=== PATIENT | male | born 2005 | race African-American/Black ===

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

== ENCOUNTER 2025-04-10 02:34 | Emergency (ER) | payer SELFPAY ==
[2025-04-10] VITALS (21 sets, daily range): BP systolic 73–147; BP diastolic 47–73; PULSE 70–93; RESP 15–22; TEMP 36.5; O2SAT 97–100
--- NOTE | 2025-04-10 02:37 | ED.GENADUL_ITS ---
Discharge Plan Disposition Patient Disposition: Home Condition: Good Discharge Details Clinical Impression: Acute LUQ pain Primary Care Provider: Lauren Cabrera ED Provider: Nino Pierre and New Rx's Prescriptions: Continued sertraline 100 mg tablet 100 mg PO DAILY lamotrigine 25 mg tablet 50 mg PO DAILY melatonin 10 mg tablet 10 mg PO HS PRN Discharge Instructions Additional Instructions: You were seen for an episode of left upper quadrant abdominal pain. Your exam, vital signs, EKG, chest x-ray and laboratory studies are all reassuring. Follow-up with primary care as needed. Return to ED for any new or worsening pain, persistent vomiting, fever, shortness of breath, other concerns. Referrals: Lauren Cabrera [Primary Care Provider, Medicine] [facility] General Mode of arrival: ambulatory . Date/Time Provider Initiated Documentation: 04/10/25 02:37 . Limitations to Documentation: no limitations . Information obtained by: patient and RN notes reviewed . HPI Narrative: Patient presents to ED with left upper quadrant pain radiating into his chest which woke him up about 30 to 45 minutes ago. Pain described as sharp and pleuritic. Did not necessarily feel short of breath but could not take a deep breath. No radiation of pain to the back. No nausea or vomiting. Denies any urinary symptoms. Denies any fever or cough. No previous abdominal surgery. No cocaine or methamphetamine use. Pain has resolved at this point. Has never had it previously. Related Data Home Medications ?Medication ?Instructions ?Recorded ?Confirmed lamotrigine 25 mg tablet 50 mg PO DAILY 03/25/2203/27 melatonin 10 mg tablet 10 mg PO HS PRN 03/25/22 sertraline 100 mg tablet 100 mg PO DAILY 03/25/22 Allergies Allergy/AdvReac Type Severity Reaction Status Date / Time No Known Allergies Allergy Unverified 04/10/25 02:37 General ALLY: 4 Exam Narrative Exam Narrative: Const: WDWN male in NAD. VS per triage. HEENT: NC/AT. Normal facial exam. Neck: Supple. Trachea midline. Lungs: Normal respiratory effort. Lungs are clear. Cor: RRR without murmur. Good radial pulses. GI: Soft/ND/NT. Neuro: A+O x 3. Normal speech, mentation, gait. Cranial nerves II - XII grossly intact. No gross motor or sensory deficit. Ext: No C/C/E. Medical Decision Making Patient presenting to ED with onset of sharp pleuritic left upper quadrant and left chest pain. Pain has since resolved. He is mildly hypertensive but vital signs otherwise normal and no tachycardia. Saturations are 100% on room air. Breath sounds present bilaterally. No abdominal tenderness. No use of cocaine or methamphetamine, no real concern for cardiac issue but will obtain EKG. Will need chest x-ray though with breath sounds present and saturations normal and pain resolved doubt pneumothorax. He is low risk for PE and subsequently PERCs out. Will check abdominal labs and observe for any recurrent pain while here. EKG with early repolarization but otherwise normal. Chest x-ray per my read with no acute cardiopulmonary process and specifically no pneumothorax. Laboratory studies unremarkable. White count minimally elevated to 11.9. Very mild anemia present. Chemistries and abdominal labs are normal. Urinalysis is normal. Patient without recurrent pain. Vital signs have remained normal. Will discharge home to follow-up with PCP as needed, return precautions provided. Imaging Data Radiologic Study: Attestation: I personally reviewed and interpreted this imaging study as follows: Imaging: X-Ray My impression: see [facility] Lab Data Lab results reviewed: Yes I reviewed the patient's lab results. Lab results narrative: see [facility] ECG Data Attestation: I personally reviewed and interpreted this ECG (s) as follows: Prior ECG tracings: not available for review Interpretation: see MDM/EKG [facility] All Active Problems (Updated 04/10/25 @ 04:09 by Nino Pierre MD) Acute LUQ pain (Acute) Ganglion cyst of dorsum of right wrist (Acute) Social History Smoking/Tobacco Use Status: Never Smoking risk assessment performed?: Yes Alcohol Intake: never Drug use: Daily Substance use type: marijuana Housing: house Do you feel safe at home: Yes Do you feel safe in your relationship?: Yes
--- NOTE | 2025-04-10 02:45 | DI.RAD_ITS ---
Exam(s) XR CHEST 2V PA LATERAL EXAM: XR CHEST 2V PA LATERAL CLINICAL HISTORY: pleuritic pain TECHNIQUE: 2D digital imaging was performed of the chest. Two images were obtained. PA and lateral views were obtained. COMPARISON: No exams were available for comparison FINDINGS: MEDIASTINUM: Normal. HEART: Normal. PULMONARY VASCULATURE: Normal. LUNGS: Clear. PLEURAL SPACE: No pleural effusion or pneumothorax. BONE:Within normal limits for the patient's age. OTHER FINDINGS:Normal. IMPRESSION: 1. No acute pulmonary findings. 2. The preliminary [facility] report was reviewed. DATA REPOSITORY: RADIATION DOSE DELIVERED:
--- NOTE | 2025-04-10 02:45 | RT.EKG_ITS ---
APPROVED REPORT Exam: Resting ECG Reason for Exam: Patient Location: E HR:75 bpm ECG Measurements Heart Rate 75 AXIS MI 173 P 80 QRSd 90 QRS 64 QT 365 T 58 QTc 408 Conclusion Sinus rhythm...normal P axis, V-rate 60- 99 ST elev, probable normal early repol pattern...ST elevation, age<55 Normal [place]/Interval I have reviewed and interpreted ECG and agree with software generated interpretation.
[2025-04-10 03:19] LABS: Abs Immature Grans 0.05 10^3/uL (0.0-0.06); HCT 39.2 % (40.0-50.0); HGB 13.3 g/dL (13.5-17.5); Immature Grans % 0.4 %; MCH 29.8 pg (27.0-33.0); MCHC 33.9 % (32.0-36.0); MCV 88 fL (80-95); MPV 11.6 fL (8.0-11.0); Platelet Count 147 10^3/uL (130-400); RBC 4.47 10^6/uL (4.36-5.78); RDW 13.2 % (11.8-14.1); RDW-SD 42.4 fL; WBC 11.87 10^3/uL (4.4-10.8)
[2025-04-10 03:32] LABS: ALT 37 U/L (16-63); AST 25 U/L (15-37); Albumin 4.0 g/dL (3.4-5.0); Alkaline Phosphatase 60 U/L (46-116); Anion Gap 7.3 mmol/L (3-11); BUN 17 mg/dL (7-18); Bilirubin, Total 0.4 mg/dL (0.2-1.0); CO2 26.7 mmol/L (21.0-32.0); Calcium 9.0 mg/dL (8.5-10.1); Chloride 106 mmol/L (98-107); Estimated GFR 109.81 (mL/min/1.73m2); Glucose 99 mg/dL (74-106); Lipase 26 U/L (<78); Potassium 3.7 mmol/L (3.5-5.1); Sodium 140 mmol/L (136-145); Total Protein 6.6 g/dL (6.4-8.2)
[2025-04-10 03:56] LABS: Glucose Negative (Negative)
--- NOTE | 2025-04-10 04:13 | DI.VRAD_ITS ---
PROCEDURE INFORMATION: Exam: XR Chest Exam date and time: 04/10/2025 3:23 AM Age: 20 years old Clinical indication: Other: Pleuritic pain TECHNIQUE: Imaging protocol: Radiologic exam of the chest. Views: 2 views. COMPARISON: No relevant prior studies available. FINDINGS: Lungs: No focal consolidation seen. Pleural spaces: No large pleural effusion seen. Heart/Mediastinum: No cardiomegaly. Bones/joints: No acute abnormality. IMPRESSION: No acute findings to explain reported symptoms. Dictated and Authenticated by: Thalia Noble MD. Orderin Ignacio Oneill MD
== END 2025-04-10 04:21 | disposition home or self-care (01) ==
LOC: ER 04:34
PROVIDERS: Emergency Provider Emergency Medicine; PCP Nurse Practitioner
DX: R10.13 Epigastric pain (principal)
CPT/HCPCS: 80053; 83690; 93005; 99284; 71046; 81003; 85025; 93010

== ENCOUNTER 2025-05-28 19:05 | Emergency (ER) | payer MEDICAID, SELFPAY ==
[2025-05-28 19:15] VITALS: BP 132/78; PULSE 92; RESP 16; TEMP 36.8; O2SAT 98
--- NOTE | 2025-05-28 19:37 | ED.GENADUL_ITS ---
Discharge Plan Disposition Patient Disposition: Home Condition: Stable Discharge Details Clinical Impression: Bipolar 1 disorder Primary Care Provider: Lauren Cabrera ED Provider: Farshad Murphy Home Meds and New Rx's Prescriptions: No Action sertraline 100 mg tablet 100 mg PO DAILY Discharge Instructions Instructions: Bipolar disorder Additional Instructions: You were seen in the emergency department for feeling burnt out,, he denied suicidal ideation or homicidal ideation, you refused to wait for [facility] to evaluate you, you have a safe place to go, I am unable to write you 2 weeks of from work for this complaint without seeing a mental health professional, you do have an upcoming therapy initiation visit. Please follow through with this plan, please continue your sertraline. Please return to the ER for any emergent concerns. Referrals: Lauren Cabrera [Primary Care Provider, Medicine] Discharge Data Discharge Date/Time-TO BE ENTERED AT DEPARTURE: 05/28/25 20:48 HPI General Date/Time Provider Initiated Documentation: 05/28/25 19:23 . 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 Severity is described as moderate. Palliating factors include nothing specific attempted. Provoking factors include nothing specific. Patient not anticoagulated. Related Data Home Medications ?Medication ?Instructions ?Recorded ?Confirmed sertraline 100 mg tablet 100 mg PO DAILY 03/25/2210/21 Allergies Allergy/AdvReac Type Severity Reaction Status Date / Time No Known Allergies Allergy Unverified 04/10/25 02:37 General Stated Complaint: PsychEval ALLY: 2 Review of Systems All systems reviewed & are unremarkable except as noted in HPI and below Exam Narrative Exam Narrative: GENERAL APPEARANCE: Well-nourished, non-toxic, awake and alert, atraumatic, no acute distress. SKIN: Warm, normal for ethnicity, dry, intact, without rashes/lesions/ulcerations. HEAD: Normocephalic, atraumatic, normal hair distribution for gender/age. EYES: Normal conjunctiva, no exudates on lids/lashes. ENT: Nares patent, no circumoral cyanosis, no facial swelling NECK: Supple, trachea midline, painless cervical ROM. LUNGS/CHEST: Non-labored respirations, normal A/P diameter, symmetrical expansion, no chest wall deformity HEART (CV/PV): No peripheral edema, no JVD. ABDOMEN: Soft, non-distended, no guarding. MSK: Normal ROM, no swelling/deformity to bilateral UEs or LEs, moving all extremities without weakness, no cyanosis, spine midline without tenderness, normal curvature. NEURO: Mental Status AAOx4 - alert to person, place, time, events No facial droop, no forehead involvement. Motor: No focal weakness - strength 5/5 in bilateral UEs and LEs, proximal and distal, symmetric. Sensory: sensation intact to light touch globally. Gait normal: patient ambulated without ataxia into ED room. PSYCH: dysthymic, cooperative, pleasant, appropriate speech, non-suicidal, non- homicidal, non-psychotic Course Vital Signs Vital signs: Vital Signs Temperature 36.8 C 05/28/25 19:15 Pulse 92 H 05/28/25 19:15 Respiratory Rate 16 05/28/25 19:15 Blood Pressure 132/78 05/28/25 19:15 Pulse Oximetry 98 05/28/25 19:15 Temperature 36.8 C 05/28/25 19:15 Temperature Source Oral 05/28/25 19:15 Pulse 92 H 05/28/25 19:15 Respiratory Rate 16 05/28/25 19:15 Blood Pressure 132/78 05/28/25 19:15 Blood Pressure Position Supine 05/28/25 19:15 Pulse Oximetry 98 05/28/25 19:15 Oxygen Delivery Method Room Air 05/28/25 19:15 Oxygen Flow Rate 0 05/28/25 19:15 Medical Decision Making This dictation utilizes [id number] dictation software and may contain unedited grammatical errors. 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 Severity is described as moderate. Palliating factors include nothing specific attempted. Provoking factors include nothing specific. Patients' medical history: bipolar 1. Family and social history: working as corretions officer, increased pressure at work. Pertinent exam findings / vital signs include no physical complaints- calm, appropriate speech, non-psychotic. Differential / pathologies of concern include bipolar 1, burnout, anxiety. Diagnostic studies of: -None. Interventions of: -Consult [facility]- they are in the field with PD, stated two hour wait. ED Course/Assessment/Plan: 20-year-old male presents with increased anxiety at work lately feeling stressed out, denies suicidal or homicidal ideation, would not be willing to wait the 2 hours to speak with [facility] and has upcoming therapy initiation visit, he did ask for 2 weeks off I stated I could not provide this for him unless he waited to speak to mental health, patient left at that point, low risk and has close supports, no safety plan needed. Findings not consistent with suicidal or homicidal ideation. Disposition of Bipolar 1 Disorder. Patient verbalized understanding of the plan and return to ED criteria and engaged in shared decision making. Medical Records Medical records reviewed: Yes I reviewed the patient's medical records. Quality:SDOH Health Related Social Needs: Health related social needs lonely/isolated Health related social needs details None PFSH All Active Problems (Updated 05/28/25 @ 20:25 by DARRIN Gordillo) Bipolar 1 disorder (Acute) Ganglion cyst of dorsum of right wrist (Acute) Social History Smoking/Tobacco Use Status: Never Smoking risk assessment performed?: Yes Alcohol Intake: never Drug use: Daily Substance use type: marijuana Housing: house Do you feel safe at home: Yes Do you feel safe in your relationship?: Yes
== END 2025-05-28 20:48 | disposition home or self-care (01) ==
PROVIDERS: Emergency Provider Physician Assistant; PCP Nurse Practitioner
DX: F31.9 Bipolar disorder, unspecified (principal); Z60.8 Other problems related to social environment
CPT/HCPCS: 99283; 99282

== ENCOUNTER 2025-06-07 06:30 | Emergency (ER) | payer MEDICAID, SELFPAY ==
[2025-06-07 06:36] VITALS: BP 118/89; PULSE 87; RESP 16; TEMP 36.9; O2SAT 100
--- NOTE | 2025-06-07 06:48 | ED.GENADUL_ITS ---
Discharge Plan Discharge Details Chief Complaint: PsychEval Clinical Impression: Depression with suicidal ideation Primary Care Provider: Lauren Cabrera ED Provider: Farshad Castelan Home Meds and New Rx's Prescriptions: No Action sertraline 100 mg tablet 100 mg PO DAILY HPI General Date/Time Provider Initiated Documentation: 06/07/25 06:35 . HPI Narrative: This is a 20-year-old -[place] male with a past medical history of bipolar currently on sertraline who presents today for evaluation of thoughts of self-harm patient states that for the last month he has felt somewhat more depressed than normal. He has not enjoyed things in life, he just wants to go back to bed when he wakes up in the morning, he has not been enjoying things that normally bring him happiness. Over the last week this is notably worsened, over the last few days he has been getting to have thoughts of self-harm, he states that he would not harm himself by cutting himself with a knife preferably on the risks he states he has been taking his medication as prescribed. He did miss 1 day of meds the other day, he does admit to smoking marijuana which he states does help with some of his symptoms. However he denies any alcohol or IV drug use or other drugs in general. No other complaints at this time. No other modifying factors. He has a distant history of taking excess pills years ago, but has never been admitted for mental health hospitalization. Related Data Home Medications ?Medication ?Instructions ?Recorded ?Confirmed sertraline 100 mg tablet 100 mg PO DAILY 03/25/2208/21 Allergies Allergy/AdvReac Type Severity Reaction Status Date / Time No Known Allergies Allergy Unverified 04/10/25 02:37 General Stated Complaint: PsychEval ALLY: 3 Exam Narrative Exam Narrative: 1.Const: Well-nourished, Well-developed, appearing stated age 2.Eyes: PERRL, no conjunctival injection, and symmetrical lids. 3.ENT: Atraumatic external nose and ears. Moist MM. Neck: Symmetric, trachea midline, No thyromegaly. 4.CVS: +S1/S2, Peripheral pulses 2+ and equal in all extremities. Brisk capillary refill in all extremities. 5.RESP: Unlabored respiratory effort. Clear to auscultation bilaterally. No wheezes rales or rhonchi 6.GI: Soft, Nontender/Nondistended, No hepatosplenomegaly. No guarding or rebound. 7.MSK: Normocephalic/Atraumatic, Extremities w/o deformity or ttp No cyanosis or clubbing, Normal movement of all extremities 8.Skin: Warm, Dry. No rashes or lesions. 9.Neuro: conditioning coach II-XII grossly intact. Sensation grossly intact, no focal neurologic deficits. 10.Psych: (AAO) x3. Appropriate mood and affect Course Vital Signs Vital signs: Vital Signs Temperature 36.9 C 06/07/25 06:36 Pulse 87 06/07/25 06:36 Respiratory Rate 16 06/07/25 06:36 Blood Pressure 118/89 06/07/25 06:36 Pulse Oximetry 100 06/07/25 06:36 Temperature 36.9 C 06/07/25 06:36 Temperature Source Oral 06/07/25 06:36 Pulse 87 06/07/25 06:36 Respiratory Rate 16 06/07/25 06:36 Blood Pressure 118/89 06/07/25 06:36 Blood Pressure Position Sitting 06/07/25 06:36 Pulse Oximetry 100 06/07/25 06:36 Oxygen Delivery Method Room Air 06/07/25 06:36 Oxygen Flow Rate 0 06/07/25 06:36 Pain Level 0 06/07/25 06:36 Medical Decision Making This is a 20-year-old -[place] male with a past medical history of bipolar currently on sertraline who presents today for evaluation of thoughts of self-harm patient states that for the last month he has felt somewhat more depressed than normal. He has not enjoyed things in life, he just wants to go back to bed when he wakes up in the morning, he has not been enjoying things that normally bring him happiness. Over the last week this is notably worsened, over the last few days he has been getting to have thoughts of self-harm, he states that he would not harm himself by cutting himself with a knife preferably on the risks he states he has been taking his medication as prescribed. He did miss 1 day of meds the other day, he does admit to smoking marijuana which he states does help with some of his symptoms. However he denies any alcohol or IV drug use or other drugs in general. No other complaints at this time. No other modifying factors. He has a distant history of taking excess pills years ago, but has never been admitted for mental health hospitalization. Exam demonstrates a well-appearing male, normal mood and affect. Patient is at Mild to moderate risk with his suicidal ideations. He is seeking help. Patient is hemodynamically stable and medically clear. Patient has been smart form. We will contact mental health for evaluation. Patient will be signed out to my colleague Dr. Main for follow-up on mental health assessment. Quality:SDOH Health Related Social Needs: Health related social needs lonely/isolated Health related social needs details None PFSH All Active Problems (Updated 06/07/25 @ 06:51 by Farshad Castelan DO) Depression with suicidal ideation (Acute) Bipolar 1 disorder (Acute) Ganglion cyst of dorsum of right wrist (Acute) Social History Smoking/Tobacco Use Status: Never Smoking risk assessment performed?: Yes Alcohol Intake: never Drug use: Daily Substance use type: marijuana Housing: house Do you feel safe at home: Yes Do you feel safe in your relationship?: Yes
--- NOTE | 2025-06-07 08:37 | ED.PROG1_ITS ---
Date of service: 06/07/25 Time of Service: 08:00 Psychiatric Border Handoff Update Brief Story: In brief, this is a 20-year-old male patient with a past medical history significant for bipolar 1, presenting for evaluation of depression, suicidal ideation with a plan to cut his wrists, no intent or attempt. At the time that I took over his care, he was medically cleared, and awaiting evaluation by [facility]. The patient had a discussion with the social work job titles, at this time is planning to follow-up with his PCP on Wednesday for medication changes, and meets criteria for safety plan and outpatient management at this time. He is unsure if he wants to proceed with inpatient hospitalization, and outpatient referral can be placed if he does change his mind. He completed a safety plan and has numerous outpatient supports and understands that he should return to care immediately if he begins to feel unsafe or cannot cannot complete the terms of the safety plan as outlined. At this time, the patient has had a full medical evaluation and is safe for discharge to home. They are hemodynamically stable, ambulatory, and tolerating PO. They are understanding of the follow-up plan and return precautions. They left our facility without incident. Giselle Main MD Status: voluntary Able to leave: yes Behavioral Concerns: None Potential Disposition: Outpatient care, safety plan Medical Concerns: None Discharge Plan Disposition Patient Disposition: Home Condition: Stable Discharge Details Clinical Impression: Depression with suicidal ideation Primary Care Provider: Lauren Cabrera ED Provider: Giselle Main Home Meds and New Rx's Prescriptions: No Action sertraline 100 mg tablet 100 mg PO DAILY Discharge Instructions Instructions: Suicide Prevention Additional Instructions: You were seen in the emergency department today for evaluation of suicidal thoughts and feelings in the setting of depression. In our department you had a full physical examination performed, and met with a member of our crisis team. At this time, you are completing a safety plan and will reach out to [facility] daily as recommended while awaiting your appointment with your primary care provider on Wednesday. As they discussed, you can consider voluntary psychiatric hospitalization for medication management as well as management of your ongoing symptoms. Please adhere to all aspects of the safety plan, but know that you can always return to the emergency department if your symptoms change or worsen. Please take all medications as prescribed, and please follow-up with your primary care provider in the next few days to discuss this visit and any symptoms that change, worsen, or persist. Thank you for allowing us to be part of your care. Stand Alone Forms: Work Release
--- NOTE | 2025-06-07 09:33 | PDOC.MHCN_ITS ---
Date of service: 06/07/25 Time of Service: 08:15 PHQ-9 Over the last 2 weeks, how often have you been bothered by any of the following problems? 1. Little interest or pleasure in doing things: nearly every day 2. Feeling down, depressed, or hopeless: nearly every day 3. Trouble falling or staying asleep, or sleeping too much: nearly every day 4. Feeling tired or having little energy: nearly every day 5. Poor appetite or overeating: nearly every day 6. Feeling bad about yourself - or that you are a failure or have let yourself and your family down: nearly every day 7. Trouble concentrating on things, such as reading the newspaper or watching television: nearly every day 8. Moving or speaking so slowly that other people could have noticed? - Or the opposite - being so fidgety or restless that you have been moving around a lot more than usual: nearly every day 9. Thoughts that you would be better off or of hurting yourself in some way: nearly every day Total score: 27 If you checked off any problems, how difficult have these problems made it for you to do your work, take care of things at home, or get along with other people?: very difficult Source: Developed by Drs. Nino Jarvis, Lina Espino, Torres Rivers and colleagues, with an educational jim from [employer]. Suicide Severity Rate CSSRS Have you wished you were or wished you could go to sleep and not wake up?: Yes Have you actually had any thoughts of killing yourself?: No CSSRS2 Have you been thinking about how you might do this?: No Have you had these thoughts and had some intention of acting on them?: No Have you started to work out or worked out the details of how to kill yourself? Do you intend to carry out this plan?: No CSSRS3 Have you ever done anything, started to do anything or prepared to do anything to end your life?: No CSSRS4 Was this within the past three months?: Yes Screening Score Total Score: 4 Screening: Positive Mental Health Emergency Note Release [facility] release signed:: No Reason for Visit thoughts of SI no plan In the last 2 weeks has the pt presented for ES prior to today?: Yes, presented at Client Information Client is: New Well Housed: Yes Non Suicidal Self Injury Current: No History: No Safety Risk/Harm to Self or Others Current Ideation to Harm Self or Others: Yes to self. Intent: no, has no intent. Plan: no.does not have a plan. Risk: Does risk to harm exist?: No Risk: Low Risk Duty to warn indicated: No Asssessment/Mental Status Appearance: Well groomed Attitude: Cooperative Behavior: Unremarkable Speech: Normal Affect: Normal Mood: Stressed, Depressed and Anxious Thought process: Unremarkable Hallucinations: No Delusions: No Attention: Unremarkable Perception: Not impaired Orientation: Fully orientated Memory: Intact Insight: Good Judgement: Good Neurovegetative Symptoms Sleep: Decrease Appetitie: Decrease Interests: Decrease Energy: Decrease Libido: Not applicable Substance Use: Do you use nicotine?: No Have you used substances in the last 7 days?: No Additional Issues: Assaultive/Threatening Behavior: No Medical Concerns: No Client engaged in active self harm w/weapon: No Threatening to run away: No Child reported abuse/neglect: No Voluntarily presenting for services: No Domestic violence is a concern: No Extreme Psychosis or extreme behavior is present: No Resources Reosurces reviewed and given:: 988 and [facility] Plan/Disposition Recommended Disposition: PCP/Office visit, [facility] Services [facility] Services: Other, Hospitalization No and Therapy. Plan: Client will return home with family, client will reach out daily to check in, client will take today and think about inpatient hospitalization and talk it o gus with his family. [facility] staff is on board with this plan. Person reported agreement to plan: Yes Reports/communication Outcome discussed with: ED/Personnel Final Disposition/Discharge Transportation Checklist completed and faxed: No
== END 2025-06-07 09:15 | disposition home or self-care (01) ==
PROVIDERS: Emergency Provider Emergency Medicine; PCP Nurse Practitioner
DX: F32.A Depression, unspecified (principal); R45.851 Suicidal ideations
CPT/HCPCS: 99285; 99284; 00123; 96127